=== PATIENT | male | born 1985 | race American Indian/Alaskan Native ===

== ENCOUNTER 2018-03-09 18:29 | Emergency (ER) | payer SELFPAY | END 2018-03-09 18:30 | disposition left against medical advice (07) | LOC: ED 18:29 | DX: R51 Headache (principal); M79.604 Pain in right leg; M79.605 Pain in left leg; Z53.21 Procedure and treatment not carried out due to patient leaving prior to being seen by health care provider ==

== ENCOUNTER 2018-03-12 16:18 | Emergency (ER) | payer OTHER ==
[2018-03-12 16:45] VITALS: BP 140/90
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
== END 2018-03-12 18:43 | disposition home or self-care (01) ==
LOC: ED 16:18
DX: S09.8XXA Other specified injuries of head, initial encounter (principal); F17.200 Nicotine dependence, unspecified, uncomplicated; V49.9XXA Car occupant (driver) (passenger) injured in unspecified traffic accident, initial encounter; Y93.89 Activity, other specified; Y92.89 Other specified places as the place of occurrence of the external cause; Y99.8 Other external cause status
CPT/HCPCS: 70450; 99283